=== PATIENT | male | born 1980 | race African-American/Black ===

== ENCOUNTER 2017-05-21 11:32 | Emergency (ER) | payer OTHER ==
[2017-05-21 11:46] VITALS: BP 130/85; PULSE 86; RESP 20; TEMP 98.6
[2017-05-21] MEDS ORDERED: AZITHROMYCIN 500 MG TAB PO STA (12:05)
[2017-05-21] MEDS ORDERED: cefTRIAXone 250 MG VIAL IM STA (12:05)
--- NOTE | 2017-05-21 12:33 | ED ---
General Adult HPI - General Chief complaint: Urogenital Stated complaint: STD Time Seen by Provider: 05/21/17 11:58 Source: patient, RN notes reviewed Mode of arrival: ambulatory Limitations: no limitations - History of Present Illness Initial comments: 36-year-old male presents to the emergency department with a chief complaint of concern for STD. Patient states that his girlfriend is having symptoms of STD and he would like the shot. Patient states he is having no symptoms at this time. He denies pain discharge dysuria hematuria or any other symptoms.Patient denies any recent fever, chills, shortness of breath, chest pain, back pain, abdominal pain, nausea vomiting, numbness or tingling, dysuria or hematuria, constipation or diarrhea, headaches or visual changes, or any other current symptoms. - Related Data Previous Rx's Medication Instructions Recorded Doxycycline [Vibramycin] 100 mg PO Q12HR #56 capsule 05/21/17 Allergies Allergy/AdvReac Type Severity Reaction Status Date / Time No Known Allergies Allergy Verified 05/21/17 11:45 Review of Systems ROS Statement: Those systems with pertinent positive or pertinent negative responses have been documented in the HPI. ROS Other: All systems not noted in ROS Statement are negative. Past Medical History Past Medical History: No Reported History History of Any Multi-Drug Resistant Organisms: None Reported Past Surgical History: No Surgical Hx Reported Past Psychological History: No Psychological Hx Reported Smoking Status: Current every day smoker Past Alcohol Use History: None Reported Past Drug Use History: None Reported General Exam Limitations: no limitations General appearance: alert, in no apparent distress Neck exam: Present: normal inspection. Absent: tenderness, meningismus, lymphadenopathy Respiratory exam: Present: normal lung sounds bilaterally. Absent: respiratory distress, wheezes, rales, rhonchi, stridor Cardiovascular Exam: Present: regular rate, normal rhythm, normal heart sounds. Absent: systolic murmur, diastolic murmur, rubs, gallop, clicks GI/Abdominal exam: Present: soft, normal bowel sounds. Absent: distended, tenderness, guarding, rebound, rigid Neurological exam: Present: alert, oriented X3 Psychiatric exam: Present: normal affect, normal mood Skin exam: Present: warm, dry, intact, normal color. Absent: rash Course Vital Signs 05/21/17 11:43 Temperature 98.6 F Pulse Rate 86 Respiratory 20 Rate Blood Pressure 130/85 O2 Sat by Pulse 96 Oximetry Medical Decision Making - Medical Decision Making 36-year-old male presents for concern for STD with no symptoms at this time. At this time we will prophylactically treat the patient. We discussed follow- up on results. We discussed safe sex practices. We discussed return parameters all patient's questions. He stated that he understood these. Plan. He will be discharged. - Lab Data Lab Results 05/21/17 Range/Units Unknown Urine Color Yellow Urine Appearance Clear (Clear) Urine pH 6.0 (5.0-8.0) Ur Specific [place] 1.021 (1.001-1.035) Urine Protein Trace H (Negative) Urine Glucose (UA) Negative (Negative) Urine Ketones Negative (Negative) Urine Blood Negative (Negative) Urine Nitrite Negative (Negative) Urine Bilirubin Negative (Negative) Urine Urobilinogen 2.0 (<2.0) mg/dL Ur Leukocyte Esterase Negative (Negative) Disposition Clinical Impression: Concern about STD in male without diagnosis Disposition: HOME SELF-CARE Condition: Stable Instructions: Sexually Transmitted Diseases (ED) Additional Instructions: Please use medication as discussed. Please follow up with family doctor if symptoms have not improved over the next two days. Please return to the emergency room if your symptoms increase or worsen or for any other concerns. Prescriptions: Doxycycline [Vibramycin] 100 mg PO Q12HR #56 capsule Referrals: Radha Lozano MD [STAFF PHYSICIAN] - 1-2 days Time of Disposition: 12:44
[2017-05-21 12:37] LABS: Appearance,Urine Clear (Clear); Bilirubin,Urine Negative (Negative); Glucose,Urine (UA) Negative (Negative); Ketones,Urine Negative (Negative); Leukocyte Esterase,Urine Negative (Negative); Nitrite,Urine Negative (Negative); Protein,Urine Trace (Negative); Specific Gravity,Urine 1.021 (1.001-1.035); UA Billing (MACRO vs. MICRO) CHEM
== END 2017-05-21 12:40 | disposition home or self-care (01) ==
LOC: EC 11:32
DX: Z20.2 Contact with and (suspected) exposure to infections with a predominantly sexual mode of transmission (principal); F17.200 Nicotine dependence, unspecified, uncomplicated
CPT/HCPCS: 81003; 87491; 87591; 99283; 96372; J0696

== ENCOUNTER 2019-10-02 10:41 | Inpatient (IN) | payer MEDICAID, OTHER ==
--- NOTE | 2019-10-02 11:23 | ED ---
Psych HPI - General Chief Complaint: Psychiatric Symptoms Stated Complaint: Not able to sleep Time Seen by Provider: 10/02/19 10:59 Source: patient, RN notes reviewed Mode of arrival: ambulatory Limitations: no limitations - History of Present Illness Initial Comments: 38-year-old male presents emergency Department with multiple complaints. Patient states he has had ongoing dental pain but states that it saw the emergency dental clinic this morning and has toothaches, he states that he recently moved from [place] and states when he was down there he was recently placed on Abilify and Lamictal for anxiety issues. Patient states that he cannot sleep. He states that he quit smoking status. Copy states it started going to the gym he states he is making always erratic decisions. Patient states she's never had any blood work on. He has no chest pain, shortness breath, abdominal pain. - Related Data Home Medications Medication Instructions Recorded Confirmed ARIPiprazole [Abilify] 20 mg PO HS 10/02/19 10/02/19 Amoxicillin 500 mg PO DIRECTED 10/02/19 10/02/19 Temazepam [Restoril] 15 mg PO HS PRN 10/02/19 10/02/19 hydrOXYzine PAMOATE [Vistaril] 25 mg PO BID PRN 10/02/19 10/02/19 lamoTRIgine [LaMICtal] 50 mg PO HS 10/02/19 10/02/19 Allergies Allergy/AdvReac Type Severity Reaction Status Date / Time No Known Allergies Allergy Verified 10/02/19 11:34 Review of Systems ROS Statement: Those systems with pertinent positive or pertinent negative responses have been documented in the HPI. ROS Other: All systems not noted in ROS Statement are negative. Past Medical History Past Medical History: No Reported History History of Any Multi-Drug Resistant Organisms: None Reported Past Surgical History: No Surgical Hx Reported Past Psychological History: Anxiety, Depression Smoking Status: Current every day smoker Past Alcohol Use History: Occasional Past Drug Use History: Marijuana General Exam Limitations: no limitations General appearance: alert, in no apparent distress Head exam: Present: atraumatic, normocephalic, normal inspection Eye exam: Present: normal appearance, PERRL, EOMI. Absent: scleral icterus, conjunctival injection, periorbital swelling ENT exam: Present: normal exam, normal oropharynx, mucous membranes moist, TM's normal bilaterally Neck exam: Present: normal inspection, full ROM. Absent: tenderness, m eningismus, lymphadenopathy Respiratory exam: Present: normal lung sounds bilaterally. Absent: respiratory distress, wheezes, rales, rhonchi, stridor Cardiovascular Exam: Present: regular rate, normal rhythm, normal heart sounds. Absent: systolic murmur, diastolic murmur, rubs, gallop, clicks GI/Abdominal exam: Present: soft, normal bowel sounds. Absent: distended, tenderness, guarding, rebound, rigid Neurological exam: Present: alert, oriented X3 Psychiatric exam: Present: anxious (Flight of ideas) Skin exam: Present: warm, dry, intact, normal color. Absent: rash Course Vital Signs 10/02/19 10:43 Temperature 98.1 F Pulse Rate 95 Respiratory 18 Rate Blood Pressure 168/102 O2 Sat by Pulse 99 Oximetry Medical Decision Making - Medical Decision Making Patient evaluated by EPS patient will be admitted for manic bipolar disorder, anxiety. - Lab Data Result diagrams: 10/02/19 12:10 10/02/19 12:10 Lab Results 10/02/19 10/02/19 10/02/19 Range/Units 11:45 12:10 12:10 WBC 7.8 (3.8-10.6) k/uL RBC 4.34 (4.30-5.90) m/uL Hgb 13.4 (13.0-17.5) gm/dL Hct 40.2 (39.0-53.0) % MCV 92.6 (80.0-100.0) fL MCH 31.0 (25.0-35.0) pg MCHC 33.4 (31.0-37.0) g/dL RDW 12.6 (11.5-15.5) % Plt Count 257 (150-450) k/uL Neutrophils % 65 % Lymphocytes % 25 % Monocytes % 6 % Eosinophils % 1 % Basophils % 1 % Neutrophils # 5.1 (1.3-7.7) k/uL Lymphocytes # 1.9 (1.0-4.8) k/uL Monocytes # 0.5 (0-1.0) k/uL Eosinophils # 0.1 (0-0.7) k/uL Basophils # 0.1 (0-0.2) k/uL Sodium 143 (137-145) mmol/L Potassium 3.8 (3.5-5.1) mmol/L Chloride 108 H (98-107) mmol/L Carbon Dioxide 27 (22-30) mmol/L Anion Gap 8 mmol/L BUN 7 L (9-20) mg/dL Creatinine 0.78 (0.66-1.25) mg/dL Est GFR (CKD-EPI)AfAm >90 (>60 ml/min/1.73 sqM) Est GFR (CKD-EPI)NonAf >90 (>60 ml/min/1.73 sqM) Glucose 96 (74-99) mg/dL Calcium 9.8 (8.4-10.2) mg/dL Total Bilirubin 0.3 (0.2-1.3) mg/dL AST 30 (17-59) U/L ALT 45 (21-72) U/L Alkaline Phosphatase 62 (38-126) U/L Total Protein 7.0 (6.3-8.2) g/dL Albumin 4.3 (3.5-5.0) g/dL TSH 0.834 (0.465-4.680) mIU/L Urine Color Colorless Urine Appearance Clear (Clear) Urine pH 6.5 (5.0-8.0) Ur Specific [place] 1.002 (1.001-1.035) Urine Protein Negative (Negative) Urine Glucose (UA) Negative (Negative) Urine Ketones Negative (Negative) Urine Blood Negative (Negative) Urine Nitrite Negative (Negative) Urine Bilirubin Negative (Negative) Urine Urobilinogen <2.0 (<2.0) mg/dL Ur Leukocyte Esterase Negative (Negative) Urine Opiates Screen Not Detected (NotDetected) Ur Oxycodone Screen Not Detected (NotDetected) Urine Methadone Screen Not Detected (NotDetected) Ur Propoxyphene Screen Not Detected (NotDetected) Ur Barbiturates Screen Not Detected (NotDetected) U Tricyclic Antidepress Not Detected (NotDetected) Ur Phencyclidine Scrn Not Detected (NotDetected) Ur Amphetamines Screen Not Detected (NotDetected) U Methamphetamines Scrn Not Detected (NotDetected) U Benzodiazepines Scrn Detected H (NotDetected) Urine Cocaine Screen Not Detected (NotDetected) U Marijuana (THC) Screen Detected H (NotDetected) Serum Alcohol <10 mg/dL Disposition Clinical Impression: Bipolar disorder, Acute anxiety Disposition: TRANSFER TO PSYCH HOSP/UNIT Condition: Fair Referrals: None,Stated [Primary Care Provider] - 1-2 days
[2019-10-02 12:29] LABS: Appearance,Urine Clear (Clear); Bilirubin,Urine Negative (Negative); Blood,Urine Negative (Negative); Color,Urine Colorless; Glucose,Urine (UA) Negative (Negative); Ketones,Urine Negative (Negative); Leukocyte Esterase,Urine Negative (Negative); Nitrite,Urine Negative (Negative); PH, Urine 6.5 (5.0-8.0); Protein,Urine Negative (Negative); Specific Gravity,Urine 1.002 (1.001-1.035); Urobilinogen,Urine <2.0 mg/dL (<2.0)
[2019-10-02 12:40] LABS: Basophils # (A) 0.1 k/uL (0-0.2); Basophils % (A) 1 %; Eosinophils # (A) 0.1 k/uL (0-0.7); Eosinophils % (A) 1 %; HCT 40.2 % (39.0-53.0); HGB 13.4 gm/dL (13.0-17.5); Lymphocytes # (A) 1.9 k/uL (1.0-4.8); Lymphocytes % (A) 25 %; MCHC 33.4 g/dL (31.0-37.0); MCV 92.6 fL (80.0-100.0); Mean Platelet Volume 6.6; Monocytes # (A) 0.5 k/uL (0-1.0); Monocytes % (A) 6 %; Neutrophils # (A) 5.1 k/uL (1.3-7.7); Neutrophils % (A) 65 %; Platelet Count 257 k/uL (150-450); RBC 4.34 m/uL (4.30-5.90); RDW 12.6 % (11.5-15.5); WBC 7.8 k/uL (3.8-10.6)
[2019-10-02 12:41] LABS: Amphetamine Screen,Urine Not Detected (NotDetected); Barbiturate Screen,Urine Not Detected (NotDetected); Benzodiazepines Screen,Urine Detected (NotDetected); Cocaine Screen,Urine Not Detected (NotDetected); Methadone Screen, Urine Not Detected (NotDetected); Opiate Screen,Urine Not Detected (NotDetected); Oxycodone Screen, Urine Not Detected (NotDetected); Phencyclidine Screen,Urine Not Detected (NotDetected); Tricyclic Antidepressant,Urine Not Detected (NotDetected); Urn Cannabinoid Scrn Detected (NotDetected)
[2019-10-02 12:42] LABS: ALT 45 U/L (21-72); AST 30 U/L (17-59); African American GFR (CKD) >90 (>60 ml/min/1.73 sqM); Albumin 4.3 g/dL (3.5-5.0); Alcohol <10 mg/dL; Alkaline Phosphatase 62 U/L (38-126); Anion Gap 8 mmol/L; Blood Urea Nitrogen 7 mg/dL (9-20); Calcium 9.8 mg/dL (8.4-10.2); Carbon Dioxide 27 mmol/L (22-30); Chloride 108 mmol/L (98-107); Glucose 96 mg/dL (74-99); Potassium 3.8 mmol/L (3.5-5.1); Sodium 143 mmol/L (137-145); Total Bilirubin 0.3 mg/dL (0.2-1.3)
[2019-10-02 18:26] VITALS: BMI 21.3
[2019-10-02] MEDS ORDERED: ACETAMINOPHEN TAB 325 MG TAB PO PRN (19:42)
[2019-10-02] MEDS ORDERED: MAG HYDROX/AL HYDROX/SIMETH 30 ML CUP PO PRN (19:42)
[2019-10-02] MEDS ORDERED: ZIPRASIDONE 20 MG VIAL IM PRN (19:42)
[2019-10-02] MEDS ORDERED: MAGNESIUM HYDROXIDE 2,400 MG/10 ML CUP PO PRN (19:42)
[2019-10-02] MEDS ORDERED: LORazepam 2 MG/ML INJ IM PRN (19:44)
[2019-10-02] MEDS ORDERED: diphenhydrAMINE 50 MG CAP PO PRN (19:45)
[2019-10-02] MEDS ORDERED: AMOXICILLIN 500 MG CAP PO ONE (20:00)
[2019-10-02] MEDS: NICOTINE 7MG/24HR PATCH TRANSDERM SCH (20:34)
[2019-10-02] MEDS: LORazepam 1 MG TAB PO PRN (20:35)
[2019-10-02] MEDS: hydrOXYzine PAMOATE 25 MG CAP PO PRN (23:06)
[2019-10-03] MEDS: NICOTINE 7MG/24HR PATCH TRANSDERM SCH ×2 (08:07→08:53)
[2019-10-03 08:23] LABS: Cholesterol 93 mg/dL (<200); HDL Cholesterol 47 mg/dL (40-60); LDL Cholesterol,Calculated 38 mg/dL (0-99); Triglycerides 39 mg/dL (<150)
--- NOTE | 2019-10-03 14:21 | P.HP ---
Psychiatric H&P - . H&P Date: 10/03/19 History & Physical: Allergies Allergy/AdvReac Type Severity Reaction Status Date / Time No Known Allergies Allergy Verified 10/02/19 18:30 Vital Signs Temp 98.7 F 10/03/19 06:12 Pulse 102 H 10/03/19 06:12 Resp 16 10/03/19 06:12 BP 129/82 10/03/19 06:12 Pulse Ox 99 10/02/19 10:43 Intake & Output 10/02/19 10/03/19 10/03/19 18:59 06:59 18:59 Weight 79.379 kg Laboratory Last Values WBC 7.8 k/uL (3.8-10.6) 10/02/19 12:10 RBC 4.34 m/uL (4.30-5.90) 10/02/19 12:10 Hgb 13.4 gm/dL (13.0-17.5) 10/02/19 12:10 Hct 40.2 % (39.0-53.0) 10/02/19 12:10 MCV 92.6 fL (80.0-100.0) 10/02/19 12:10 MCH 31.0 pg (25.0-35.0) 10/02/19 12:10 MCHC 33.4 g/dL (31.0-37.0) 10/02/19 12:10 RDW 12.6 % (11.5-15.5) 10/02/19 12:10 Plt Count 257 k/uL (150-450) 10/02/19 12:10 Neutrophils % 65 % 10/02/19 12:10 Lymphocytes % 25 % 10/02/19 12:10 Monocytes % 6 % 10/02/19 12:10 Eosinophils % 1 % 10/02/19 12:10 Basophils % 1 % 10/02/19 12:10 Neutrophils # 5.1 k/uL (1.3-7.7) 10/02/19 12:10 Lymphocytes # 1.9 k/uL (1.0-4.8) 10/02/19 12:10 Monocytes # 0.5 k/uL (0-1.0) 10/02/19 12:10 Eosinophils # 0.1 k/uL (0-0.7) 10/02/19 12:10 Basophils # 0.1 k/uL (0-0.2) 10/02/19 12:10 Sodium 143 mmol/L (137-145) 10/02/19 12:10 Potassium 3.8 mmol/L (3.5-5.1) 10/02/19 12:10 Chloride 108 mmol/L (98-107) H 10/02/19 12:10 Carbon Dioxide 27 mmol/L (22-30) 10/02/19 12:10 Anion Gap 8 mmol/L 10/02/19 12:10 BUN 7 mg/dL (9-20) L 10/02/19 12:10 Creatinine 0.78 mg/dL (0.66-1.25) 10/02/19 12:10 Est GFR (CKD-EPI)AfAm >90 (>60 ml/min/1.73 sqM) 10/02/19 12:10 Est GFR (CKD-EPI)NonAf >90 (>60 ml/min/1.73 sqM) 10/02/19 12:10 Glucose 96 mg/dL (74-99) 10/02/19 12:10 Calcium 9.8 mg/dL (8.4-10.2) 10/02/19 12:10 Total Bilirubin 0.3 mg/dL (0.2-1.3) 10/02/19 12:10 AST 30 U/L (17-59) 10/02/19 12:10 ALT 45 U/L (21-72) 10/02/19 12:10 Alkaline Phosphatase 62 U/L (38-126) 10/02/19 12:10 Total Protein 7.0 g/dL (6.3-8.2) 10/02/19 12:10 Albumin 4.3 g/dL (3.5-5.0) 10/02/19 12:10 Triglycerides 39 mg/dL (<150) 10/03/19 07:46 Cholesterol 93 mg/dL (<200) 10/03/19 07:46 LDL Cholesterol, Calc 38 mg/dL (0-99) 10/03/19 07:46 HDL Cholesterol 47 mg/dL (40-60) 10/03/19 07:46 TSH 0.834 mIU/L (0.465-4.680) 10/02/19 12:10 Urine Color Colorless 10/02/19 11:45 Urine Appearance Clear (Clear) 10/02/19 11:45 Urine pH 6.5 (5.0-8.0) 10/02/19 11:45 Ur Specific [place] 1.002 (1.001-1.035) 10/02/19 11:45 Urine Protein Negative (Negative) 10/02/19 11:45 Urine Glucose (UA) Negative (Negative) 10/02/19 11:45 Urine Ketones Negative (Negative) 10/02/19 11:45 Urine Blood Negative (Negative) 10/02/19 11:45 Urine Nitrite Negative (Negative) 10/02/19 11:45 Urine Bilirubin Negative (Negative) 10/02/19 11:45 Urine Urobilinogen <2.0 mg/dL (<2.0) 10/02/19 11:45 Ur Leukocyte Esterase Negative (Negative) 10/02/19 11:45 Urine Opiates Screen Not Detected (NotDetected) 10/02/19 11:45 Ur Oxycodone Screen Not Detected (NotDetected) 10/02/19 11:45 Urine Methadone Screen Not Detected (NotDetected) 10/02/19 11:45 Ur Propoxyphene Screen Not Detected (NotDetected) 10/02/19 11:45 Ur Barbiturates Screen Not Detected (NotDetected) 10/02/19 11:45 U Tricyclic Antidepress Not Detected (NotDetected) 10/02/19 11:45 Ur Phencyclidine Scrn Not Detected (NotDetected) 10/02/19 11:45 Ur Amphetamines Screen Not Detected (NotDetected) 10/02/19 11:45 U Methamphetamines Scrn Not Detected (NotDetected) 10/02/19 11:45 U Benzodiazepines Scrn Detected (NotDetected) H 10/02/19 11:45 Urine Cocaine Screen Not Detected (NotDetected) 10/02/19 11:45 U Marijuana (THC) Screen Detected (NotDetected) H 10/02/19 11:45 Serum Alcohol <10 mg/dL 10/02/19 12:10 10/03/19 14:10 IDENTIFYING DATA: Patient is a 38-year-old -[place] male who currently lives with his girlfriend and 2 kids in an apartment and is currently unemployed HPI: Patient presented to the hospital yesterday evening with the chief complaint of dental pain stating that he kept his tooth recently. Patient also endorsed feeling anxious with poor sleep and suffering from depression. Patient states that he was placed on Abilify and Lamictal while he was in [place] at a psychiatric hospital and was recently discharged late last week. He states that he "did not feel right" after leaving the hospital and states that his sleep was poor and stopped taking his medications and came to [place] to be closer to his family and his girlfriend. He states that since being in [place] he has been smoking marijuana approximately 4-5 blunts a day. Patient claims that he has been feeling "off balance" and continues to endorse anxiety and poor sleep and also was talking about his blood pressure being elevated. Patient states that when he was at the other facility in [place] that they did not listen to him and that they placed him on medications that did not help him at all. Patient endorsed having stressors including several members in his family passing away recently and also spoke about his who in a car accident approximately 14 years ago. Patient claims that his mood has been depressed however patient denies any suicidal or homicidal ideations intent or plan. At this time patient denies any auditory or visual hallucinations. Patient denies any flight of ideas racing thoughts and increased in goal directed behavior. Patient admits to using marijuana 4-5 blunts per day. Patient denies any other recreational cai bstance use. Patient was positive for benzodiazepines however it does not know where it came from and denies any street pills. Patient admits to daily cigarette use PAST PSYCHIATRIC HISTORY: Patient states that he does not know his diagnosis and claims that he is suffering from depression and anxiety. Patient was recently admitted to a psychiatric unit in [place] and spent 8 days there and was discharged late last week. Patient denies any psychiatric follow-up. He denies any suicide attempts in the past. He claims that he was previously on Lamictal and Abilify. PMH: Hypertension ALLERGIES: as per EMR CHEMICAL DEPENDENCY HISTORY: as per HPI FAMILY PSYCHIATRIC/SUBSTANCE USE HISTORY: States that one of his cousins has bipolar SOCIAL HISTORY: He states that he is born and raised in [place] and has been on and off in [place] at times. 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 He currently lives with his girlfriend and 2 kids in the apartment. Patient has 2 other kids whom he does not live with. MENTAL STATUS EXAM: General Appearance: Patient appears to be stated age is alert, directable and cooperative. Fair hygiene and grooming. Behavior: Patient is calmly seated without any agitated behavior. Labile at times. Speech: Patient's speech is fluent and nonpressured. Mood/Affect: Patient reports their mood is depressed and anxious, affect is congruent and constricted. Suicidality/Homicidality: Patient denies having any suicidal or homicidal ideation intent or plan. Perceptions: Patient denies any auditory or visual hallucinations. Though content/process: There is no evidence of any delusional thought content and thought process is circumstantial/tangential. Memory and concentration: AOX3, grossly intact for the purposes of this session. Can spell "WORLD" backwards Judgment and insight: poor STRENGTHS/WEAKNESSES: strength is that patient is resilient, weaknesses that patient has substance abuse issues. INTELLECT: average IMPRESSIONS: Major depressive disorder rule out bipolar depression Anxiety disorder unspecified Cannabis use disorder PLAN: -Patient is admitted under voluntary status to MHU for stabilization of psychiatric symptoms and safety. Patient signed adult voluntary form and medication consent and is placed in patient's chart. -Medications : Will start patient on Lamictal 50 mg daily for mood stabilization/depression with a plan to titrate up as needed. We'll also start patient on trazodone 50 mg daily at bedtime for insomnia/mood. Vistaril 25 mg twice a day when necessary for anxiety. Melatonin 5 mg when necessary daily at bedtime for sleep. -Geodon and Ativan PRN for agitation/aggression -Patient was counselled on substance abuse and desired to cut back on use -Patient was informed of the risks, benefits and side effects of the medication and patient verbally consented to taking the medications. Patient signed med consent form and was placed in chart. -NRT - nicotine patch - on board for discharge planning 10/03/19 14:20
[2019-10-03] MEDS: lamoTRIgine 25 MG TAB PO SCH (14:52)
[2019-10-03] MEDS: BENZOCAINE 20 % GEL 15 GM TUBE MM PRN (14:53)
--- NOTE | 2019-10-03 15:09 | P.MDCNMH ---
History of Present Illness H&P Date: 10/03/19 Chief Complaint: Medical management 38-year-old male with PMH of anxiety and depression presents to the ED for dental pain. He was admitted to mental health for manic bipolar disorder and anxiety. [facility] physicians has been consulted for medical management of this patient. Patient reports toothache sitter. Ongoing for the past couple of months, was recently seen by a dentist the day prior to admission, prescribed amoxicillin and told to follow-up in one week. Patient reports anxiety that has been worsening characterized by panic attacks and difficulty breathing at times. Patient reports smoking 17 cigarettes daily along with marijuana on a regular basis. He denies any alcohol use. He denies any headache, lower extremity edema, nausea or vomiting, fever or chills, cough, chest pain, changes in urination or bowel habits. No changes in appetite or weight. Patient denies any dizziness, numbness/weakness/tingling of the extremities. Patient reports feeling extremely anxious and claustrophobic after his group activity this morning. Review of Systems Pertinent positives and negatives as discussed in HPI, a complete review of systems was performed and all other systems are negative. Past Medical History Past Medical History: No Reported History History of Any Multi-Drug Resistant Organisms: None Reported Past Surgical History: No Surgical Hx Reported Past Psychological History: Anxiety, Depression Smoking Status: Current every day smoker Past Alcohol Use History: Occasional Additional Past Alcohol Use History / Comment(s): doesn't remember last time he had alcohol Past Drug Use History: Marijuana Additional History: Patient reports diabetes mellitus along with kidney failure in his father. Medications and Allergies Home Medications Medication Instructions Recorded Confirmed Type ARIPiprazole [Abilify] 20 mg PO HS 10/02/19 10/02/19 History Amoxicillin 500 mg PO DIRECTED 10/02/19 10/02/19 History Temazepam [Restoril] 15 mg PO HS PRN 10/02/19 10/02/19 History hydrOXYzine PAMOATE [Vistaril] 25 mg PO BID PRN 10/02/19 10/02/19 History lamoTRIgine [LaMICtal] 50 mg PO HS 10/02/19 10/02/19 History Allergies Allergy/AdvReac Type Severity Reaction Status Date / Time No Known Allergies Allergy Verified 10/02/19 18:30 Physical Exam Vitals: Vital Signs Temp Pulse Resp BP 10/03/19 06:12 98.7 F 102 H 16 129/82 10/02/19 22:55 113 H 153/92 10/02/19 18:19 98.0 F 72 16 151/104 10/02/19 17:50 98.0 F 72 16 151/104 General: [non toxic], [no distress], [appears at stated age] Derm: [warm], [dry] Head: [atraumatic], [normocephalic], [symmetric] Eyes: [EOMI], [no lid lag], [anicteric sclera] Mouth: [no lip lesion], [mucus membranes moist] Cardiovascular: [S1S2 reg], [no murmur], [positive posterior tibial pulse bilateral], Lungs: [CTA bilateral], [no rhonchi, no rales] , [no accessory muscle use] Abdominal: [soft], [ nontender to palpation], [no guarding], [no appreciable organomegaly] Ext: [no gross muscle atrophy], [no edema], [no contractures] Neuro: [ CN II-XI grossly intact], [no focal neuro deficits] Psych: [Alert], [oriented], [appropriate affect] Cranial Nerve Examination - Cranial Nerves Cranial Nerve II- Optic: Intact Cranial Nerve III- Oculomotor: Intact Cranial Nerve IV- Trochlear: Intact Cranial Nerve V- Trigeminal: Intact Cranial Nerve - Abducens: Intact Cranial Nerve VII- Facial: Intact Cranial Nerve VIII- Auditory: Intact Cranial Nerve IX- Glossopharyngeal: Intact Cranial Nerve X- Vagus: Intact Cranial Nerve XI- Accessory: Intact Cranial Nerve XII- Hypoglossal: Intact Results CBC & Chem 7: 10/02/19 12:10 10/02/19 12:10 Assessment and Plan Assessment: Assessment and plan Elevated BP and tachycardia without diagnosis of hypertension Illicit drug use Smoker History of anxiety and depression, bipolar disorder BP as high as 168/102 with pulse as high as 113. Patient has never been diagnosed with hypertension. Has history of anxiety. Plans: His anxiety is being controlled with Ativan as needed. Blood pressure is currently 129/82, acceptable. We will continue to monitor his blood pressure along with pulse and adjust medications as necessary. He needs better control of his anxiety. UDS positive for marijuana. Plans: Likely contributing to anxiety. Advised patient to quit. Plans: Start nicotine patch. Plans: Management as per psychiatry. Thank you for this consult. Please call with any additional questions or concerns.
[2019-10-03 17:16] LABS: Hemoglobin A1C 5.6 % (4.0-6.0)
[2019-10-03] MEDS ORDERED: traZODone HCL 50 MG TAB PO SCH (21:00)
[2019-10-03] MEDS: LORazepam 1 MG TAB PO PRN (22:11)
[2019-10-03] MEDS: MELATONIN 5 MG TABLET PO PRN (22:11)
[2019-10-03] MEDS: AMOXICILLIN 500 MG CAP PO SCH (22:11)
[2019-10-04] MEDS: hydrOXYzine PAMOATE 25 MG CAP PO PRN (00:24)
[2019-10-04] MEDS: BENZOCAINE 20 % GEL 15 GM TUBE MM PRN ×5 (05:07→20:22)
[2019-10-04] MEDS: AMOXICILLIN 500 MG CAP PO SCH ×3 (07:57→20:25)
[2019-10-04] MEDS: NICOTINE 7MG/24HR PATCH TRANSDERM SCH (07:57)
[2019-10-04] MEDS: lamoTRIgine 25 MG TAB PO SCH (07:57)
--- NOTE | 2019-10-04 12:05 | P.PN ---
Progress Note - Text Progress Note Date: 10/04/19 Interval History: Patient was seen wandering the hallways and was agreeable to be corrected in the office. Patient states that he feels better with regards to his anxiety claims that his mood has been mildly improving. Patient states that he is attending groups and trying to participate in activities with other patients. Patient continues to be tangential/circumstantial in his thought process. Patient spoke about the differences of people in [place] versus [place] and how he feels that he is misunderstood. Patient claims that she is a unique person and has energy unlike other people. Patient spoke about an incident yesterday where he was called the wrong name by a nurse and became agitated at that time and needed to be redirected. He states that he slept well last night however did receive Ativan at night. He claims that he has fair energy and appetite. At this time patient denies any suicidal or homical ideations, intent or plan. Patient denies any auditory, visual hallucinations and denies any paranoia or delusions. Patient denies any side effects from the medications and has been compliant with meds. Mental Status Exam: General Appearance: Patient appears to be stated age is alert, directable. Fair hygiene and grooming. Behavior: Patient is calmly seated without any agitated behavior. Last labile today. Speech: Patient's speech is fluent and nonpressured. Hyperverbal. Mood/Affect: Patient reports their mood is depressed and anxious, mildly improving, affect is congruent Suicidality/Homicidality: Patient denies having any suicidal or homicidal ideation intent or plan. Perceptions: Patient denies any auditory or visual hallucinations. Though content/process: There is no evidence of any delusional thought content and thought process is circumstantial/tangential. Memory and concentration: AOX3, grossly intact for the purposes of this session. Judgment and insight: poor, improving mildly. Assessment Major depressive disorder rule out bipolar depression Anxiety disorder unspecified Cannabis use disorder Plan: -Patient continues to meet criteria for inpatient psychiatric admission for symptom stabilization and safety. Patient has signed adult voluntary form and medication consent and was placed in patient's chart. -Medications: Will increase Lamictal 200 mg daily for mood stabilization/depression. Patient denies any rash on his skin and has been checking daily. Will increase trazodone to 100 mg nightly for insomnia/mood. Continue with Vistaril 25 mg twice a day when necessary for anxiety. Melatonin 5 mg nightly when necessary for sleep. -When necessary Geodon and Ativan for agitation/aggression. -NRT - [nicotine patch] -SW on board for discharge planning. Likely discharge in 1-2 days. Patient asked his girlfriend to come in to visit him this evening to assess for baseline.
[2019-10-04] MEDS: traZODone HCL 100 MG TAB PO SCH (20:22)
[2019-10-04] MEDS: LORazepam 1 MG TAB PO PRN (20:22)
[2019-10-04] MEDS: MELATONIN 5 MG TABLET PO PRN (20:22)
[2019-10-05] MEDS: lamoTRIgine 100 MG TAB PO SCH (07:57)
[2019-10-05] MEDS: AMOXICILLIN 500 MG CAP PO SCH ×3 (07:57→21:56)
[2019-10-05] MEDS: NICOTINE 7MG/24HR PATCH TRANSDERM SCH (07:59)
--- NOTE | 2019-10-05 11:06 | P.PN ---
Progress Note - Text Progress Note Date: 10/05/19 Interval History: Patient was seen wandering the hallways and was agreeable to be speak to ticket writer in the office. Patient appeared to be more directable this morning however continues to be hyperverbal in speech and is tangential/circumstantial thought process. Patient states that he feels better with regards to his anxiety and his mood has been mildly improving on the current medications. Patient is hesitant/resistant to titrating up the medications at this time. He states that he needed and Ativan last night as he stated that "the nurse was hooking me up". Patient states that he is attending groups and trying to participate and interact with other people on the unit. Patient referred many times to his medications and his girlfriend and believes that these are the reasons why he still in the hospital and was focused on discharge. Patient continues to believe that he is feeling misunderstood by others in [place] and claims that "this is how people were a come from talk like". He states that he slept well last night however did receive Ativan at night. He claims that he has fair energy and appetite. At this time patient denies any suicidal or homical ideations, intent or plan. Patient denies any auditory, visual hallucinations and denies any paranoia or delusions. Patient denies any side effects from the medications and has been compliant with meds. Mental Status Exam: General Appearance: Patient appears to be stated age is alert, directable. Fair hygiene and grooming. Behavior: Patient is calmly seated without any agitated behavior. Less labile today. Speech: Patient's speech is fluent and nonpressured. Hyperverbal. Mood/Affect: Patient reports their mood/anxiety is mildly improving, affect is congruent Suicidality/Homicidality: Patient denies having any suicidal or homicidal ideation intent or plan. Perceptions: Patient denies any auditory or visual hallucinations. Though content/process: There is no evidence of any delusional thought content and thought process is circumstantial/tangential. Memory and concentration: AOX3, grossly intact for the purposes of this session. Judgment and insight: poor, improving mildly. Assessment Major depressive disorder rule out bipolar depression Anxiety disorder unspecified Cannabis use disorder Plan: -Patient continues to meet criteria for inpatient psychiatric admission for symptom stabilization and safety. Patient has signed adult voluntary form and medication consent and was placed in patient's chart. -Medications: Will continue with Lamictal 100 mg daily for mood stabilization/depression. Patient denies any rash on his skin and has been checking daily. Will continue with trazodone to 100 mg nightly for insomnia/mood. Continue with Vistaril 25 mg twice a day when necessary for anxiety. Melatonin 5 mg nightly when necessary for sleep. -When necessary Geodon and Ativan for agitation/aggression. Asked nursing to document clearly the need for PRNs if given the patient. -NRT - nicotine patch -SW on board for discharge planning. Likely discharge early next week. Patient's girlfriend to come to the hospital to visit and will speak with ticket writer afterwards will patient's condition and her concerns.
[2019-10-05] MEDS: NICOTINE POLACRILEX 2 MG GUM BUCCAL PRN ×2 (14:58→19:09)
[2019-10-05] MEDS: traZODone HCL 100 MG TAB PO SCH (21:56)
[2019-10-06] MEDS: BENZOCAINE 20 % GEL 15 GM TUBE MM PRN ×2 (01:37→08:17)
[2019-10-06] MEDS: MELATONIN 5 MG TABLET PO PRN (03:28)
[2019-10-06] MEDS: AMOXICILLIN 500 MG CAP PO SCH ×3 (08:17→20:25)
[2019-10-06] MEDS: lamoTRIgine 100 MG TAB PO SCH (08:17)
[2019-10-06] MEDS: risperiDONE 0.5 MG TAB PO SCH (10:22)
--- NOTE | 2019-10-06 10:26 | P.PN ---
Progress Note - Text Progress Note Date: 10/06/19 Interval History: Patient was seen attending group and was agreeable to be speak to insurance writer in the office. Patient appeared to be sharing some of his experiences during group and was allowed to finish. She was more directable today and was apologetic about yesterday his behavior after the meeting with his girlfriend. Patient continues to make grandiose statements and claims that "people don't know me likely due in [place]". Patient also has some grandiosity and his thought content and c ontinues to be somewhat paranoid. Patient states that he feels better with regards to his anxiety and his mood and is focused on discharge. Patient claims that he had a difficult time sleeping last night and is agreeable to start Risperdal to help with mood stabilization/paranoia. He claims that he has fair energy and appetite. At this time patient denies any suicidal or homical ideations, intent or plan. Patient denies any auditory, visual hallucinations. Patient denies any side effects from the medications and has been compliant with meds. Mental Status Exam: General Appearance: Patient appears to be stated age is alert, directable. Fair hygiene and grooming. Behavior: Patient is calmly seated without any agitated behavior. Less labile today and apologetic. Speech: Patient's speech is fluent and nonpressured. Hyperverbal. Mood/Affect: Patient reports their mood/anxiety is mildly improving, affect is congruent Suicidality/Homicidality: Patient denies having any suicidal or homicidal ideation intent or plan. Perceptions: Patient denies any auditory or visual hallucinations. Though content/process: There is no evidence of any delusional thought content and thought process is circumstantial/tangential. Memory and concentration: AOX3, grossly intact for the purposes of this session. Judgment and insight: poor, improving mildly. Assessment Mood disorder unspecified, rule out bipolar disorder Anxiety disorder unspecified Cannabis use disorder Plan: -Patient continues to meet criteria for inpatient psychiatric admission for symptom stabilization and safety. Patient has signed adult voluntary form and medication consent and was placed in patient's chart. -Medications: Will continue with Lamictal 100 mg daily for mood stabilization/depression. Patient denies any rash on his skin and has been checking daily. Will continue with trazodone to 100 mg nightly for insomnia/mood. Continue with Vistaril 25 mg twice a day when necessary for anxiety. Melatonin 5 mg nightly when necessary for sleep. Added Risperdal 0.5 mg daily +1 mg daily at bedtime for mood stabilization/paranoia. -When necessary Geodon and Ativan for agitation/aggression. -NRT - nicotine patch -SW on board for discharge planning. Likely discharge next week.
[2019-10-06] MEDS: NICOTINE POLACRILEX 2 MG GUM BUCCAL PRN ×2 (10:53→13:53)
[2019-10-06] MEDS: traZODone HCL 100 MG TAB PO SCH (20:25)
[2019-10-06] MEDS ORDERED: risperiDONE 1 MG TAB PO SCH (21:00)
[2019-10-06] MEDS: amLODIPine 10 MG TAB PO SCH (23:38)
--- NOTE | 2019-10-07 01:11 | P.PN ---
Progress Note - Text Progress Note Date: 10/07/19 Informed by the RN on [facility] that patient complained of chest discomfort, eye pain, and neck pain. The patient was seen and evaluated at the bedside in the mental health unit. The patient reports that he had an episode of lower left chest wall pain which lasted a few seconds when he moved a certain way a few hours ago. At the current time, the patient reported feeling some palpitations along with a mild headache and some pain in the eyes. The patient denied shortness of breath, chest pain, nausea, diaphoresis. The patient reported a hx of high blood pressure though reports never taking any medications. General: Non-toxic, in no acute distress, appears stated age, normal weight HEENT: NC/AT, anicteric sclerae, moist conjunctiva, no lid-lag, PERRLA Cardiovascular: S1/S2 wnl, no murmurs, rubs, or gallops Lungs: Clear to auscultation, normal respiratory effort, no accessory muscle use Abdominal: Soft, non-tender, non-distended, no guarding, rebound, or rigidity Skin: Warm, dry Extremities: No edema or contractures Psychiatric: Alert and oriented to person, place and time, appropriate affect Neuro: CN II-XII grossly intact, Strength 5/5 in all 4 extremities, Speech intact, Sensation to light touch grossly intact throughout Assessment/Plan Palpitations, headache, likely due to poorly controlled HTN -Will start 2 antihypertensive agents -EKG reviewed: Showing LVH with repolarization changes -Obtain Troponin
[2019-10-07] MEDS: LABETALOL 200 MG TAB PO SCH ×3 (01:23→21:11)
[2019-10-07] MEDS: risperiDONE 0.5 MG TAB PO SCH (08:50)
[2019-10-07] MEDS: lamoTRIgine 100 MG TAB PO SCH (08:50)
[2019-10-07] MEDS: AMOXICILLIN 500 MG CAP PO SCH ×3 (08:50→21:11)
[2019-10-07] MEDS: amLODIPine 10 MG TAB PO SCH (08:51)
[2019-10-07] MEDS: NICOTINE POLACRILEX 2 MG GUM BUCCAL PRN ×2 (11:17→13:39)
--- NOTE | 2019-10-07 12:50 | P.PN ---
Progress Note - Text Progress Note Date: 10/07/19 Interval History: Patient was wandering the hallways and was agreeable to be speak to creative services writer in the office. Patient was laughing as he was walking towards the office and stated that another patient was acting bizarre and got onto his bed and needed redirection. Patient appeared to be more directable today and appeared to be less hyperverbal and more logical/goal oriented and his thought process. Patient continues to make some grandiose statements at times. Patient spoke about his blood pressure being elevated and how to use on medications to help with that. Patient states that he feels better with regards to his anxiety and his mood and is focused on discharge however was redirectable and agreeable to stay. Patient claims that he slept a bit better last night and claims that the Risperdal is help with mood stabilization/paranoia. He claims that he has fair energy and appetite. At this time patient denies any suicidal or homical ideations, intent or plan. Patient denies any auditory, visual hallucinations. Patient denies any side effects from the medications and has been compliant with meds. Mental Status Exam: General Appearance: Patient appears to be stated age is alert, directable. Fair hygiene and grooming. Behavior: Patient is calmly seated without any agitated behavior. Less labile today. Speech: Patient's speech is fluent and nonpressured. Hyperverbal. Mood/Affect: Patient reports their mood/anxiety is mildly improving, affect is congruent Suicidality/Homicidality: Patient denies having any suicidal or homicidal ideation intent or plan. Perceptions: Patient denies any auditory or visual hallucinations. Though content/process: There is no evidence of any delusional thought content and thought process is improving. Memory and concentration: AOX3, grossly intact for the purposes of this session. Judgment and insight: poor, improving mildly. Assessment Mood disorder unspecified, rule out bipolar disorder Anxiety disorder unspecified Cannabis use disorder Plan: -Patient continues to meet criteria for inpatient psychiatric admission for sy mptom stabilization and safety. Patient has signed adult voluntary form and medication consent and was placed in patient's chart. -Medications: Will continue with Lamictal 100 mg daily for mood stabil ization/depression. Patient denies any rash on his skin and has been checking daily. Will continue with trazodone to 100 mg nightly for insomnia/mood. Continue with Vistaril 25 mg twice a day when necessary for anxiety. Melatonin 5 mg nightly when necessary for sleep. Will change Risperdal 2 mg daily at bedtime for mood stabilization/paranoia. -When necessary Geodon and Ativan for agitation/aggression. -NRT - nicotine patch -SW on board for discharge planning. Likely discharge this coming week.
[2019-10-07] MEDS ORDERED: GABAPENTIN 400 MG CAP PO SCH (21:00)
[2019-10-07] MEDS: risperiDONE ODT 2 MG TAB PO SCH (21:10)
[2019-10-07] MEDS: traZODone HCL 100 MG TAB PO SCH (21:10)
[2019-10-08] MEDS: BENZOCAINE 20 % GEL 15 GM TUBE MM PRN (03:50)
[2019-10-08] MEDS: NICOTINE POLACRILEX 2 MG GUM BUCCAL PRN ×2 (06:28→19:29)
[2019-10-08] MEDS: LABETALOL 200 MG TAB PO SCH ×2 (08:19→21:24)
[2019-10-08] MEDS: amLODIPine 10 MG TAB PO SCH (08:19)
[2019-10-08] MEDS: AMOXICILLIN 500 MG CAP PO SCH ×3 (08:19→21:25)
[2019-10-08] MEDS: lamoTRIgine 100 MG TAB PO SCH (08:19)
--- NOTE | 2019-10-08 13:18 | P.PN ---
Progress Note - Text Progress Note Date: 10/08/19 Interval History: Patient was laying down on his bed and was agreeable to be speak to keno writer in the office. Patient was more calm and cooperative this morning and appeared to be apologetic about yesterday and previously acting out. He states that he feels a lot calmer on his medications at this time it states that the Risperdal is helping him sleep and also with his blood pressure. Patient continues to speak about his blood pressure and heart rate being elevated and how he needed to be controlled on antihypertensives. Patient appeared to be more directable today and appeared to be less hyperverbal and more logical/goal oriented and his thought process. Patient was not making any grandiose statements today and had improved reality testing. Patient states that he feels better with regards to his anxiety and his mood. Patient claims that he slept a bit better last night approximately 7 hours. He claims that he has fair energy and appetite. At this time patient denies any suicidal or homical ideations, intent or plan. Patient denies any auditory, visual hallucinations. Patient denies any side effects from the medications and has been compliant with meds. He also states that he spoke with his girlfriend who is a lot more willing now to have him back after discharge. Mental Status Exam: General Appearance: Patient appears to be stated age is alert, directable. Fair hygiene and grooming. Behavior: Patient is calmly seated without any agitated behavior. More appropriate today. Speech: Patient's speech is fluent and nonpressured. Improved tone and rate. Mood/Affect: Patient reports their mood/anxiety is improved, affect is congruent with improved range. Suicidality/Homicidality: Patient denies having any suicidal or homicidal ideation intent or plan. Perceptions: Patient denies any auditory or visual hallucinations. Though content/process: There is no evidence of any delusional thought content and thought process has improved. Memory and concentration: AOX3, grossly intact for the purposes of this session. Judgment and insight: Fair, improving mildly. Assessment Bipolar disorder, margarito with psychotic features. Anxiety disorder unspecified Cannabis use disorder Plan: -Patient continues to meet criteria for inpatient psychiatric admission for symptom stabilization and safety. Patient has signed adult voluntary form and medication consent and was placed in patient's chart. -Medications: Will continue with Lamictal 100 mg daily for mood stabilizati on/depression. Patient denies any rash on his skin and has been checking daily. Will continue with trazodone to 100 mg nightly for insomnia/mood. Continue with Vistaril 25 mg twice a day when necessary for anxiety. Melatonin 5 mg nightly when necessary for sleep. Will continue with Risperdal 2 mg daily at bedtime for mood stabilization/paranoia. -When necessary Geodon and Ativan for agitation/aggression. -NRT - nicotine patch -SW on board for discharge planning. Likely discharge tomorrow. used building materials yard worker to reach out to girlfriend to plan for discharge and ensure safety and follow-up and answer questions.
[2019-10-08] MEDS: traZODone HCL 100 MG TAB PO SCH (21:24)
[2019-10-08] MEDS: risperiDONE ODT 2 MG TAB PO SCH (21:25)
[2019-10-08] MEDS: MELATONIN 5 MG TABLET PO PRN (22:10)
[2019-10-08] MEDS: LORazepam 1 MG TAB PO PRN (22:10)
[2019-10-09] MEDS: NICOTINE POLACRILEX 2 MG GUM BUCCAL PRN ×2 (06:17→10:27)
[2019-10-09 06:25] VITALS: BP 141/70; PULSE 78; RESP 15; TEMP 98
[2019-10-09] MEDS: LABETALOL 200 MG TAB PO SCH (08:47)
[2019-10-09] MEDS: lamoTRIgine 100 MG TAB PO SCH (08:47)
[2019-10-09] MEDS: amLODIPine 10 MG TAB PO SCH (08:47)
[2019-10-09] MEDS: AMOXICILLIN 500 MG CAP PO SCH (08:47)
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
== END 2019-10-09 13:30 | DRG 885 ==
LOC: EC 10:41 → 3MHU 16:51
PROVIDERS: ADMIT Psychiatry & Neurology Psychiatry; ATTEND Psychiatry & Neurology Psychiatry
DX: F31.2 Bipolar disorder, current episode manic severe with psychotic features (principal); F12.10 Cannabis abuse, uncomplicated; F17.210 Nicotine dependence, cigarettes, uncomplicated; F41.9 Anxiety disorder, unspecified; G47.00 Insomnia, unspecified; I10 Essential (primary) hypertension; Z79.899 Other long term (current) drug therapy; Z65.3 Problems related to other legal circumstances; R03.0 Elevated blood-pressure reading, without diagnosis of hypertension; Z56.0 Unemployment, unspecified; Z83.3 Family history of diabetes mellitus; Z84.1 Family history of disorders of kidney and ureter; Z71.51 Drug abuse counseling and surveillance of drug abuser
CPT/HCPCS: 36415; 80053; 80061; 80306; 80320; 81003; 82075; 83036; 84443; 84484; 85025; 93005; 99284

== ENCOUNTER 2021-08-18 15:47 | Emergency (ER) | payer OTHER ==
[2021-08-18 16:32] VITALS: BP 117/78; PULSE 90; RESP 19; TEMP 99.4
== END 2021-08-18 18:03 ==
LOC: EC 15:47
DX: Z20.822 Contact with and (suspected) exposure to COVID-19 (principal); Z53.21 Procedure and treatment not carried out due to patient leaving prior to being seen by health care provider
CPT/HCPCS: 87635; 99499